=== PATIENT | male | born 1990 | race African-American/Black ===

== ENCOUNTER 2016-11-26 00:10 | Emergency (ER) | payer OTHER ==
[~2016-11-26] VITALS: Ht 180.3 cm; Wt 77.1 kg
[2016-11-26] MEDS ORDERED: NOHOMEMEDICATIONS (00:19)
[2016-11-26 03:18] VITALS: BP 128/74
== END 2016-11-26 03:26 | disposition short-term general hospital (02) ==
LOC: ER 00:10
DX: S02.81XA Fracture of other specified skull and facial bones, right side, initial encounter for closed fracture (principal); S01.111A Laceration without foreign body of right eyelid and periocular area, initial encounter; F10.99 Alcohol use, unspecified with unspecified alcohol-induced disorder; X99.0XXA Assault by sharp glass, initial encounter; Y93.89 Activity, other specified; Y92.89 Other specified places as the place of occurrence of the external cause; Y99.8 Other external cause status